=== PATIENT | male | born 1985 | race Caucasian/White ===

== ENCOUNTER 2018-04-26 18:17 | Inpatient (IN) | payer OTHER ==
[2018-04-26] MEDS ORDERED: KETOROLAC TROMETHAMINE 30 MG/1 ML VIAL IVPUSH ONE (19:07)
[2018-04-26] MEDS ORDERED: METOCLOPRAMIDE HCL INJECTION 10 MG/2 ML VIAL IVPUSH ONE (19:08)
--- NOTE | 2018-04-26 19:08 | PDOC ---
History of Present Illness - General Chief Complaint: Headache Stated Complaint: HEADACHE Time Seen by Provider: 04/26/18 19:05 History Source: Patient Exam Limitations: No Limitations - History of Present Illness Initial Comments: 04/26/18 20:17 This is a 32-year-old male who comes in complaining of a headache 1 week. Patient said headache initially began in his right taoism area was sharp in nature. Patient said over the next several days it spread to the left taoism as well and now is bitemporal throbbing in nature. Patient denies history of similar symptoms in the past. Patient denies history of migraines. Patient is otherwise healthy and denies any other significant medical history. Patient denies any fevers or chills. Patient denies any nausea vomiting or recent upper respiratory tract symptoms. Patient is complaining of some mild photophobia. Pt denies jaw claudication, Pt is complaining of some mild vision changes in left eye. PAST MEDICAL HISTORY: no significant history PAST SURGICAL HISTORY: no significant history FAMILY HISTORY: no pertinant history SOCIAL HISTORY: Pt lives with family and is employed. MEDICATIONS: reviewed ALLERGIES: As per nursing notes ROS General: No fevers or chills, no weakness, no weight loss HEENT: No change in vision. No sore throat,. No ear pain CardioVascular: No chest pain or shortness of breath Respiratory:No cough, or wheezing. Gastrointestinal: no nausea, vomiting, diarrhea or constipation, No rectal bleeding Genitourinary: No dysuria, hematuria, or frequency Musculoskeletal: . No joint pain or swelling Neurologic: + eyesheadache, vertigo, dizziness or loss of consciousness Psychiatric: nor depression Skin: No rashes or easy bruising Endocrine: no increased thirst or abnormal weight change Allergic: no skin or latex allergy All other systems reviewed and normal Exam: General: Well-nourished well-developed individual, no acute distress HEENT: Throat: Normal, tonsils normal, no erythema or exudate Neck: Supple, no meningeal signs, no lymphadenopathy mod tenderness on palpation left temporal artery Eyes::Pupils equal reactive and round, extraocular motion intact, mild photophobia unable to visualize funduscopic exasecondary to photophobia Chest: Nontender to palpation Cardiac: S1-S2 normal, regular rate and rhythm, no murmurs rubs or gallops Respiratory: Lungs clear to auscultation bilateral Abdomen: Soft, nondistended, normal bowel sounds, there is no tenderness on palpation diffusely Extremities: Warm, dry, no cyanosis, clubbing, or edema Skin: No rashes Neuro: Alert and oriented x3, CN II - XII intact, nonfocal exam with normal strength, normal sensation, normal reflexes, normal gait, Psych: Normal mood and affect 04/26/18 22:57 Reevaluation patient symptoms are improved but not resolved. Patient still reports moderate tenderness over the left temporal artery. Patient's CAT scan was negative. Patient's CRP was moderately elevated at 2.3 History an elevated CRP are concerning for temporal arteritis Patient given Solu-Medrol and will be admitted for temporal arteritis rule out. Patient admission discussed with hospitalist Dr. Rodriguez and accepted by Dr. vanessa . Signout given to the admitting hospitalist, who accepts the patient. Discussed plan with the patient family at bedside, Patient and family aware of the plan and agree. Patient is clinically unchanged and stable. Past History - Past Medical History Allergies/Adverse Reactions: Allergies Allergy/AdvReac Type Severity Reaction Status Date / Time No Known Allergies Allergy Verified 04/26/18 18:18 Home Medications: Ambulatory Orders Ibuprofen [Motrin -] 400 mg PO PRN PRN 04/26/18 COPD: No CHF: No - Surgical History Appendectomy: Yes - Suicide/Smoking/Psychosocial Hx Smoking History: Never smoked Have you smoked in the past 12 months: No Information on smoking cessation initiated: No Hx Alcohol Use: No Drug/Substance Use Hx: No Substance Use Type: None *Physical Exam - Vital Signs Last Vital Signs Temp Pulse Resp BP Pulse Ox 98.2 F 80 20 128/65 97 04/26/18 18:17 04/26/18 18:17 04/26/18 18:17 04/26/18 18:17 04/26/18 18:17 ED Treatment Course - LABORATORY CBC & Chemistry Diagram: 04/26/18 19:20 04/26/18 19:20 *DC/Admit/Observation/Transfer Diagnosis at time of Disposition: Headache Qualifiers: Headache type: unspecified Headache chronicity pattern: acute headache Intractability: intractable Qualified Code(s): R51 - Headache - Discharge Dispostion Decision to Admit order: Yes - Referrals - Patient Instructions - Post Discharge Activity
[2018-04-26] MEDS ORDERED: KETOROLAC TROMETHAMINE 30 MG/1 ML VIAL ONE (19:17)
[2018-04-26 19:42] LABS: BASO % 1.3 % (0-2.0); EOS % 3.9 % (0-4.5); HEMATOCRIT 43.2 % (35.4-49); HEMOGLOBIN 14.5 GM/dl (11.7-16.9); LYMPH % 35.7 % (8-40); MCHC 33.6 g/dl (32.0-35.9); MEAN CELL VOLUME 92.2 fl (80-96); MEAN PLT VOLUME 7.2 fl (7.5-11.1); MONO % 12.9 % (3.8-10.2); NEUT % 46.2 % (42.8-82.8); PLATELET COUNT 267 K/MM3 (134-434); RBC 4.69 M/mm3 (4.00-5.60); RDW 11.7 % (11.9-15.9); WHITE BLOOD COUNT 3.1 K/mm3 (4.0-10.8)
[2018-04-26 19:49] LABS: ALBUMIN 4.3 g/dl (3.5-5.0); ALK PHOS 77 U/L (32-92); ANION GAP 6 MMOL/L (8-16); BILIRUBIN,TOTAL 0.7 mg/dl (0.2-1.0); BLOOD UREA NITROGEN 17 mg/dl (7-18); CALCIUM 9.5 mg/dl (8.4-10.2); CHLORIDE 103 mmol/L (98-107); CO2 28 mmol/L (22-28); CREATININE 0.9 mg/dl (0.6-1.3); GLUCOSE,RANDOM 91 mg/dl (74-106); SGOT/AST 34 U/L (10-42); SGPT/ALT 40 U/L (10-40); SODIUM 137 mmol/L (136-145); TOT PROT 7.2 g/dl (6.4-8.3)
[2018-04-26] MEDS ORDERED: methylPREDNISolone NA SUCC 125 MG/2 ML VIAL IVPUSH ONE (22:55)
[2018-04-26] MEDS ORDERED: KETOROLAC TROMETHAMINE 15 MG/ML VIAL IVPUSH PRN (23:00)
[2018-04-26] MEDS ORDERED: methylPREDNISolone NA SUCC 125 MG/2 ML VIAL ONE (23:07)
[2018-04-26] MEDS ORDERED: PANTOPRAZOLE 40 MG TABLET (FP) PO ONE (23:11)
[2018-04-27 00:37] VITALS: BMI 28.2
--- NOTE | 2018-04-27 07:43 | HP ---
CHIEF COMPLAINT: pain to left side of head PCP: none HISTORY OF PRESENT ILLNESS: Patient is a 32 y/o male with a past medical history of Lyme's disease 2004 and multiple concussions ( 6 concussions) last concussion was 3 years ago as per patient. patient reports that he was at work 3 weeks ago and developed a sharp stabbing pain to the left side of the head which was relieved with Motrin. Patient reports a week later he developed the same pain which was then again relieved with Motrin. On Friday him a April 22 2018, patient reports severe throbbing pain to the left side of the head and was unrelieved with Motrin, patient denied any nausea, vomiting, or visual disturbance. He self medicated with motrin and reports the pain was unrelieved. Patient denies any recent head trauma. ER course was notable for: (1)head ct: negative for any acute pathology (2)chest xray: no evidence of acute pulmonary disease (3)solumedrol 125mg x 1 given in ED with moderate relief of pain. 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 Smoking:none Alcohol:none Drugs: none Family History: mother alive and well father alive and well Allergies No Known Allergies Allergy (Verified 04/26/18 18:18) HOME MEDICATIONS: Home Medications Medication Instructions Recorded Ibuprofen [Motrin -] 400 mg PO PRN PRN 04/26/18 REVIEW OF SYSTEMS CONSTITUTIONAL: Absent: fever, chills, diaphoresis, generalized weakness, malaise, loss of appetite, weight change HEENT: Absent: rhinorrhea, nasal congestion, throat pain, throat swelling, difficulty swallowing, mouth swelling, ear pain, eye pain, visual changes CARDIOVASCULAR: Absent: chest pain, syncope, palpitations, irregular heart rate, lightheadedness , peripheral edema RESPIRATORY: Absent: cough, shortness of breath, dyspnea with exertion, orthopnea, wheezing, stridor, hemoptysis GASTROINTESTINAL: Absent: abdominal pain, abdominal distension, nausea, vomiting, diarrhea, constipation, melena, hematochezia GENITOURINARY: Absent: dysuria, frequency, urgency, hesitancy, hematuria, flank pain, genital pain MUSCULOSKELETAL: Absent: myalgia, arthralgia, joint swelling, back pain, neck pain SKIN: Absent: rash, itching, pallor HEMATOLOGIC/IMMUNOLOGIC: Absent: easy bleeding, easy bruising, lymphadenopathy, frequent infections ENDOCRINE: Absent: unexplained weight gain, unexplained weight loss, heat intolerance, cold intolerance NEUROLOGIC: Absent: headache, focal weakness or paresthesias, dizziness, unsteady gait, seizure, mental status changes, bladder or bowel incontinence PSYCHIATRIC: Absent: anxiety, depression, suicidal or homicidal ideation, hallucinations. PHYSICAL EXAMINATION Vital Signs - 24 hr 04/26/18 04/26/18 04/26/18 18:17 20:09 23:49 Temperature 98.2 F Pulse Rate 80 Pulse Rate [ 62 62 Left] Respiratory 20 16 16 Rate Blood Pressure 128/65 Blood Pressure 118/66 103/61 [Left] O2 Sat by Pulse 97 98 98 Oximetry (%) 04/27/18 00:28 Temperature 97.5 F L Pulse Rate 66 Pulse Rate [ Left] Respiratory 18 Rate Blood Pressure 125/72 Blood Pressure [Left] O2 Sat by Pulse 99 Oximetry (%) GENERAL: well appearing, Awake, alert, and fully oriented, in no acute distress. HEAD: tenderness upon palpation to the left temporal artery, 1) Normal with no signs of trauma. EYES: Pupils equal, round and reactive to light, extraocular movements intact, sclera anicteric, conjunctiva clear. No lid lag. EARS, NOSE, THROAT: Ears normal, nares patent, oropharynx clear without exudates. Moist mucous membranes. NECK: Normal range of motion, supple without lymphadenopathy, JVD, or masses. LUNGS: Breath sounds equal, clear to auscultation bilaterally. No wheezes, and no crackles. No accessory muscle use. HEART: Regular rate and rhythm, normal S1 and S2 without murmur, rub or gallop. ABDOMEN: Soft, nontender, not distended, normoactive bowel sounds, no guarding, no rebound, no masses. No hepatomegaly or splenomegaly. MUSCULOSKELETAL: Normal range of motion at all joints. No bony deformities or tenderness. No CVA tenderness. UPPER EXTREMITIES: 2+ pulses, warm, well-perfused. No cyanosis. No clubbing. No peripheral edema. LOWER EXTREMITIES: 2+ pulses, warm, well-perfused. No calf tenderness. No peripheral edema. NEUROLOGICAL: Cranial nerves II-XII intact. Normal speech. Normal gait. PSYCHIATRIC: Cooperative. Good eye contact. Appropriate mood and affect. SKIN: Warm, dry, normal turgor, no rashes or lesions noted, normal capillary refill. Laboratory Results - last 24 hr 04/26/18 04/26/18 19:20 19:20 WBC 3.1 L RBC 4.69 Hgb 14.5 Hct 43.2 MCV 92.2 MCH 31.0 MCHC 33.6 RDW 11.7 L Plt Count 267 MPV 7.2 L Absolute Neuts (auto) 1.5 Neutrophils % 46.2 Lymphocytes % 35.7 Monocytes % 12.9 H Eosinophils % 3.9 Basophils % 1.3 Sodium 137 Potassium 4.0 Chloride 103 Carbon Dioxide 28 Anion Gap 6 L BUN 17 Creatinine 0.9 Creat Clearance w eGFR > 60 Random Glucose 91 Calcium 9.5 Total Bilirubin 0.7 AST 34 ALT 40 Alkaline Phosphatase 77 C-Reactive Protein 2.2 H Total Protein 7.2 Albumin 4.3 ASSESSMENT/PLAN: 1) r/o temporal Artertis vs migraine - elevated crp, esr wnl, lyme's titer ordered - pt reports significant relief after solumedrol will continue solumedrol 125mg daily, however, pain may be related to migraines, will trial ric - appreciate vascular surgery and neurology input f/e/n - regular diet - replete electrolytes prn ppx - protonix - lovenox dispo: pt requires inpatient admission
[2018-04-27 08:24] LABS: BASO % 0.3 % (0-2.0); EOS % 0.1 % (0-4.5); HEMATOCRIT 44.2 % (35.4-49); HEMOGLOBIN 14.9 GM/dl (11.7-16.9); MCH 30.5 pg (25.7-33.7); MCHC 33.6 g/dl (32.0-35.9); MEAN PLT VOLUME 7.3 fl (7.5-11.1); MONO % 2.1 % (3.8-10.2); NEUT % 76.5 % (42.8-82.8); PLATELET COUNT 258 K/MM3 (134-434); RBC 4.86 M/mm3 (4.00-5.60); RDW 11.6 % (11.9-15.9); WHITE BLOOD COUNT 2.5 K/mm3 (4.0-10.8)
[2018-04-27 08:41] LABS: ANION GAP 6 MMOL/L (8-16); BLOOD UREA NITROGEN 16 mg/dl (7-18); CALCIUM 9.8 mg/dl (8.4-10.2); CHLORIDE 103 mmol/L (98-107); CO2 25 mmol/L (22-28); CREATININE 0.7 mg/dl (0.6-1.3); GLUCOSE,RANDOM 168 mg/dl (74-106); POTASSIUM 5.1 mmol/L (3.5-5.1); SODIUM 134 mmol/L (136-145)
[2018-04-27] MEDS: ENOXAPARIN NA (PORCINE) 40 MG/0.4 ML DISP.SYRIN SQ SCH ×2 (09:38→09:46)
[2018-04-27] MEDS ORDERED: PANTOPRAZOLE 40 MG TABLET (FP) PO SCH (10:00)
[2018-04-27] MEDS ORDERED: methylPREDNISolone NA SUCC 125 MG/2 ML VIAL IVPUSH SCH (10:00)
[2018-04-27] MEDS ORDERED: ACETAMINOPHEN/CAFFEINE/BUTALBITAL 1 TAB PO ONE (12:03)
[2018-04-27 12:21] LABS: URINE APPEARANCE Clear; URINE BILIRUBIN Negative (NEGATIVE); URINE COLOR Yellow; URINE GLUCOSE (UA) 1+ (NEGATIVE); URINE KETONE Negative (NEGATIVE); URINE LEUK ESTERASE Negative (NEGATIVE); URINE NITRITE Negative (NEGATIVE); URINE PROTEIN Negative (NEGATIVE); URINE UROBILINOGEN 0.2 (0.2-1.0)
[2018-04-27 13:34] LABS: EPI CELLS FEW /HPF; URINE WBC NONE SEEN (0-2)
--- NOTE | 2018-04-27 13:42 | CONSULT ---
- Consultation REQUESTING PROVIDER: CONSULT REQUEST: We have been asked to surgically evaluate this patient for headache/scalp pain to r/o temporal artheritis. . PCP:Melissa Dillon HISTORY OF PRESENT ILLNESS: The patient is a 32 yo male who presented to the ER for evaluation of his headache/scalp pain. He had two similar episodes in the past weeks which resolved with oral motrin. This headaches began , he treated it several days with motrin([id number]). On Friday he felt like he was sneezing a lot and felt achy but these symptoms resolved on Friday and he still had the headache. He denies any photophobia, nausea or history of migraines. The pain is on both sides, mainly still persistent on the left scalp. He denies any claudication symptoms. He denies any recent trauma and no changes acute changes to his vision. Has difficulty overall seeing at night with driving. The pain went to a 8 after getting IV pain medications in the ER and IV solumedrol. Currently he is feeling better. He has been trying to drink less caffeine. PMHx: lymes disease treated in 2004, 6 concussions. PSHx: appendectomy, GERD Home Medications Medication Instructions Recorded Ibuprofen [Motrin -] 400 mg PO PRN PRN 04/26/18 Allergies Allergy/AdvReac Type Severity Reaction Status Date / Time No Known Allergies Allergy Verified 04/26/18 18:18 REVIEW OF SYSTEMS: CONSTITUTIONAL: Absent: fever, chills CARDIOVASCULAR: Absent: chest pain, syncope RESPIRATORY: Absent: cough, shortness of breath GASTROINTESTINAL: Absent: abdominal pain, nausea, vomiting GENITOURINARY: Absent: dysuria, hematuria MUSCULOSKELETAL: Present: occasional back pain HEMATOLOGIC/IMMUNOLOGIC: Absent: easy bleeding, easy bruising, clots NEUROLOGIC: Absent: h/o headache, focal weakness PHYSICAL EXAM: GENERAL: Awake, alert, and fully oriented, in no acute distress. HEAD: Normal with no signs of trauma. No tenderness to palpation of his bilateral temporal region. EYES: sclera anicteric, conjunctiva clear. LUNGS: Clear to auscultation bilat anteriorly. No wheezes, and no crackles. No accessory muscle use. HEART: Regular rate and rhythm. No murmurs ABDOMEN: Soft, nontender, not distended, normoactive bowel sounds. 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 LOWER EXTREMITIES: 5/5 dorsi/pantar flexion. NEUROLOGICAL: Normal speech, gait not observed. PSYCH: Cooperative. Good eye contact. Appropriate mood and affect. Vital Signs Temperature 97.5 F L 04/27/18 00:28 Pulse Rate 82 04/27/18 11:00 Respiratory Rate 18 04/27/18 11:00 Blood Pressure 110/55 L 04/27/18 11:00 O2 Sat by Pulse Oximetry (%) 96 04/27/18 11:00 Lab Results WBC 2.5 K/mm3 (4.0-10.8) L 04/27/18 07:30 RBC 4.86 M/mm3 (4.00-5.60) 04/27/18 07:30 Hgb 14.9 GM/dl (11.7-16.9) 04/27/18 07:30 Hct 44.2 % (35.4-49) 04/27/18 07:30 MCV 91.0 fl (80-96) 04/27/18 07:30 MCHC 33.6 g/dl (32.0-35.9) 04/27/18 07:30 RDW 11.6 % (11.9-15.9) L 04/27/18 07:30 Plt Count 258 K/MM3 (134-434) 04/27/18 07:30 Sodium 134 mmol/L (136-145) L 04/27/18 07:30 Potassium 5.1 mmol/L (3.5-5.1) D 04/27/18 07:30 Chloride 103 mmol/L (98-107) 04/27/18 07:30 Carbon Dioxide 25 mmol/L (22-28) 04/27/18 07:30 Anion Gap 6 MMOL/L (8-16) L 04/27/18 07:30 BUN 16 mg/dl (7-18) 04/27/18 07:30 Creatinine 0.7 mg/dl (0.6-1.3) 04/27/18 07:30 Random Glucose 168 mg/dl (74-106) H D 04/27/18 07:30 Calcium 9.8 mg/dl (8.4-10.2) 04/27/18 07:30 Laboratory Tests 04/26/18 04/27/18 04/27/18 19:20 08:00 09:20 ESR 3 C-Reactive Protein 2.2 H Lyme Screen IgG & IgM Pending CT scan of head: no evidence of acute intracranial hemorrhage, mass, shift or skull fracture. Problem List - Problems (1) Headache Assessment/Plan: Awaiting neuro consult and will proceed with biopsy if needed. Continue IV solumedrol as per the medical team. Also trying fiorocet/reglan for headache relief. Code(s): R51 - HEADACHE Qualifiers: Headache type: unspecified Headache chronicity pattern: acute headache Intractability: intractable Qualified Code(s): R51 - Headache
[2018-04-27 14:18] VITALS: BP 132/60; PULSE 76; TEMP 98.2
--- NOTE | 2018-04-28 13:15 | EKG ---
Test Reason : Blood Pressure : / mmHG Vent. Rate : 073 BPM Atrial Rate : 073 BPM P-R Int : 178 ms QRS Dur : 082 ms QT Int : 394 ms P-R-T Axes : 053 037 025 degrees QTc Int : 434 ms NORMAL SINUS RHYTHM NORMAL ECG NO PREVIOUS ECGS AVAILABLE Confirmed by MD KARINE, TOYIN ([id number]) on 04/28/2018 1:15:24 PM Referred By: MARY Confirmed By:TOYIN MILTON MD
== END 2018-04-27 20:55 | disposition left against medical advice (07) | DRG 103 ==
LOC: FER 18:17 → FM/S 23:00 → OBSVTOIN 23:00 → UNDOADMOB 23:02 → FM/S 23:02 → UNDOADMOB 04-27 00:03 → FM/S 04-27 00:03
PROVIDERS: ADMIT Internal Medicine; ATTEND Nurse Practitioner Family
DX: R51 Headache (principal); K21.9 Gastro-esophageal reflux disease without esophagitis
CPT/HCPCS: 36415; 70450-TC; 71046-TC-FY; 80048; 80053; 81003; 81015; 85025; 85651; 86140; 86618; 93005; 99282-25